=== PATIENT | male | born 1960 | race Hispanic/Latino ===

== ENCOUNTER 2018-08-25 01:58 | Inpatient (IN) | payer BC ==
[2018-08-25] MEDS ORDERED: ACETAMINOPHEN 500 MG TAB PO PRN (03:15)
[2018-08-25] MEDS ORDERED: ONDANSETRON 4 MG/2 ML VIAL IV PRN (03:15)
[2018-08-25] MEDS ORDERED: VANCOMYCIN 1.25 GM in NA CHLORIDE 0.9% 250 ML IVPB SCH (04:00)
[2018-08-25] MEDS: NA CHLORIDE 0.9% 1,000 ML IV SCH ×2 (04:02→17:20)
[2018-08-25] MEDS ORDERED: AMPICILLIN/SULBACTAM 3GM/VIAL ONE (05:46)
[2018-08-25] MEDS ORDERED: VANCOMYCIN 1 GM/VIAL ONE (05:46)
[2018-08-25] MEDS ORDERED: NA CHLORIDE 0.9% 100 ML ONE (05:48)
[2018-08-25 05:52] LABS: Absolute Lymphocytes (CBC) 0.3 K/uL (0.7-4.9); Basophils % 0.2 % (0-1.3); Hematocrit 40.9 % (39.6-49.0); Lymphocytes % 3.1 % (15.3-44.8); MPV 7.8 fL (7.6-11.3); Monocytes % 3.4 % (3.3-12.3); RBC Red Blood Cell Count 4.95 M/uL (4.33-5.43)
[2018-08-25] MEDS: AMPICILLIN/SULBACT 3 GM in NA CHLORIDE 0.9% 100 ML IVPB SCH ×3 (05:58→18:34)
[2018-08-25] MEDS ORDERED: VANCOMYCIN 1 GM in NA CHLORIDE 0.9% 250 ML IVPB ONE (06:00)
[2018-08-25 06:17] LABS: Albumin 3.2 g/dL (3.4-5.0); Bilirubin Total 1.3 mg/dL (0.2-1.0); Phosphorus 2.9 mg/dL (2.5-4.9); Potassium 3.5 mmol/L (3.5-5.1); Protein, Total 6.8 g/dL (6.4-8.2)
[2018-08-25 06:20] LABS: Magnesium 1.4 mg/dL (1.8-2.4)
[2018-08-25] MEDS ORDERED: NA CHLORIDE 0.9% 250 ML ONE (06:21)
[2018-08-25 06:27] LABS: Blood Morphology Comment NOT SEEN (NOT SEEN); Platelet Estimate ADEQ
[2018-08-25] MEDS ORDERED: Magnesium Sulfate 2gm IVPB 2 G/50 ML BAG IV ONE (06:30)
--- NOTE | 2018-08-25 08:20 | P.HP ---
Certification for Inpatient Patient admitted to: Inpatient With expected LOS: >2 Midnights Patient will require the following post-hospital care: Home Health Services Practitioner: I am a practitioner with admitting privileges, knowledge of patient current condition, hospital course, and medical plan of care. Services: Services provided to patient in accordance with Admission requirements found in Title 42 Section 412.3 of the Code of Federal Regulations Patient History Date of Service: 08/25/18 Reason for admission: Cellulitis of the left leg History of Present Illness: Patient is a 57-year-old gentleman who states that he noticed some redness yesterday morning. Over the next few hours the redness spread from his ankle up to his knee and he had significant pain up into the inguinal region. He most likely has lymphadenopathy with possible lymphangitis. He has a significant cellulitis of the lower extremity. He was started on antibiotics. Patient meets criteria for systemic inflammatory response syndrome. We did check a lactic acid which is negative so far. But with the degree of cellulitis and his vital signs being hemodynamically unstable patient will need to be monitored very closely. Will watch him on telemetry floor and will notice if anything changes. Patient needs to be inpatient hospital stay because of his multiple risk factors including being a diabetic and with his bilateral lower extremity edema and morbid obesity. Patient has lymphadenopathy which did express to the inguinal region as well as pain up the thigh. The erythema extends from the foot up into the bottom of the knee. This will take at least 48-72 hours of antibiotic coverage to the improved cellulitis. Hopefully by then his SIRS syndrome has resolved. Patient had multiple diagnostic studies at the the Emergency Room across the street including CT of the chest for PE protocol which did not reveal a pulmonary embolism nor did her revealed pulmonary edema. Patient had a Doppler of the lower extremity which was negative for DVT. Chest x-ray was also negative. Allergies No Known Allergies Allergy (Verified 08/25/18 02:48) Home Medications: Canagliflozin/Metformin HCl [Invokamet 150-1,000 mg Tablet] 2 tab PO BEDTIME 11/05 Cetirizine HCl [Zyrtec] 10 mg PO BEDTIME 08/25/18 Levothyroxine [Synthroid] 100 mcg PO BEDTIME 08/25/18 Lisinopril/Hydrochlorothiazide [Lisinopril-Hctz 10-12.5 mg Tab] 1 each PO BEDTIME 08/25/18 Montelukast [Singulair] 10 mg PO BEDTIME 08/25/18 Pantoprazole [Protonix Tab] 40 mg PO BEDTIME 08/25/18 Phentermine HCl 37.5 mg PO BEDTIME 08/25/18 Pioglitazone [Actos] 15 mg PO BEDTIME 08/25/18 Rosuvastatin Calcium [Crestor] 20 mg PO BEDTIME 08/25/18 Semaglutide [Ozempic] 1 mg SQ EVERY 7TH DAY 08/25/18 Tamsulosin [Flomax] 0.4 mg PO BEDTIME 08/25/18 - Past Medical/Surgical History Has patient received pneumonia vaccine in the past: Yes Diabetic: Yes -: DM type 2 -: hypothyroidism -: ALONZO -: bilateral carpal tunnel surgery -: bilateral knee surgery -: rhinoplasty -: tonsillectomy -: umbilical hernia repair -: right foot surgery - Social History Smoking Status: Never smoker Alcohol use: Yes CD- Drugs: No Caffeine use: Yes Place of Residence: Home Review of Systems 10-point ROS is otherwise unremarkable Physical Examination - Vital Signs Temperature: 100.5 F Blood Pressure: 103/57 Pulse: 102 Respirations: 20 Pulse Ox (%): 92 - Physical Exam General: Alert, In no apparent distress, Oriented x3 HEENT: Atraumatic, PERRLA, Mucous membr. moist/pink, EOMI, Sclerae nonicteric Neck: Supple, 2+ carotid pulse no bruit, No LAD, Without JVD or thyroid abnormality Respiratory: Clear to auscultation bilaterally, Normal air movement Cardiovascular: Regular rate/rhythm, Normal S1 S2, No murmurs Gastrointestinal: Normal bowel sounds, Soft and benign, Non-distended, No tenderness, No rebound, No guarding Musculoskeletal: No clubbing, No erythema, No tenderness, Swelling Integumentary: Skin lesion, Tenderness/swelling, Erythema, Warmth ( Patient has the erythema from his left knee on down to the left ankle. Patient also has lymphangitis.) Neurological: Normal gait, Normal speech, Normal strength at 5/5 x4 extr, Normal tone, Normal affect Lymphatics: Inguinal lymphadenopathy External genitalia: No edema, No lesions, No masses - Studies Laboratory Data (last 24 hrs) 08/25/18 05:43: Sodium 134 L, Potassium 3.5, BUN 21 H, Creatinine 1.73 H, Glucose 141 H, Phosphorus 2.9, Magnesium 1.4 L*, Total Bilirubin 1.3 H, AST 26, ALT 40, Alkaline Phosphatase 64 08/25/18 05:43: WBC 10.0, Hgb 13.5 L, Hct 40.9, Plt Count 203 Microbiology Data (last 24 hrs): 08/25/18 05:43 Blood - Blood Anaerobic Blood Culture - Final Assessment & Plan - Problems (Diagnosis) (1) Left leg cellulitis Current Visit: Yes Status: Acute (2) DM2 (diabetes mellitus, type 2) Current Visit: Yes Status: Acute (3) Obesity, Class III, BMI 40-49.9 (morbid obesity) Current Visit: Yes Status: Acute (4) SIRS (systemic inflammatory response syndrome) Current Visit: Yes Status: Acute (5) Lymphangitis Current Visit: Yes Status: Acute - Plan 1. Continue with IV antibiotic 2. Continue with local wound care 3. Surgical consultation 4. Gentle IV hydration 5. Monitor CBC 6. Strict blood sugar monitoring 7. Pain control 8. Monitor hemodynamics and SIRS response with IVFs 9. GI and DVT prophylaxis Discharge Plan: Home Plan to discharge in: 48 Hours - Advance Directives Does patient have a Living Will: Yes Does patient have a Durable POA for Healthcare: Yes - Code Status/Comfort Care Code Status Assessed: Yes Code Status: Full Code Critical Care: No Time Spent Managing PTS Care (In Minutes): 45
[2018-08-25] MEDS ORDERED: ACETAMINOPHEN 325 MG TABLET PO ONE (08:28)
[2018-08-25 10:13] LABS: Urine Appearance CLEAR; Urine Bilirubin NEGATIVE (NEG); Urine Blood 2+ (NEG); Urine Color YELLOW; Urine Glucose 3+ (NEG); Urine Protein NEGATIVE (NEG); Urine Specific Gravity >=1.030 (1.005-1.030); Urine Urobilinogen 0.2 mg/dL (0.2-1.0)
[2018-08-25 10:48] LABS: Urine Microscopic Reflex ORDER UMIC; Urine RBC 20-50 /HPF (NONE SEEN)
[2018-08-25 10:49] LABS: Urine Bacteria <20 /HPF (NONE SEEN); Urine Culture Reflex Order NOT NEEDED; Urine Yeast PRESENT (NONE SEEN)
[2018-08-25] MEDS: ACETAMINOPHEN 500 MG TAB PO PRN (17:12)
[2018-08-26] MEDS: VANCOMYCIN 2 GM in NA CHLORIDE 0.9% 500 ML IVPB SCH ×2 (00:11→23:09)
[2018-08-26] MEDS: NA CHLORIDE 0.9% 1,000 ML IV SCH (00:12)
[2018-08-26] MEDS: ACETAMINOPHEN 500 MG TAB PO PRN ×3 (00:18→18:19)
[2018-08-26] MEDS: AMPICILLIN/SULBACT 3 GM in NA CHLORIDE 0.9% 100 ML IVPB SCH ×4 (02:12→18:15)
[2018-08-26 05:55] LABS: Magnesium 2.3 mg/dL (1.8-2.4); Potassium 4.9 mmol/L (3.5-5.1)
[2018-08-26] MEDS: TRAMADOL HCL 50 MG TAB PO PRN ×2 (12:06→20:14)
--- NOTE | 2018-08-26 12:40 | P.PN ---
Subjective Date of Service: 08/26/18 Chief Complaint: Cellulitis of the left leg Subjective: Improving Patient seen and examined at bedside. Family at bedside. Chart reviewed and case discussed with nursing staff. Patient with complaints of headache this am. Denies any sob, cp, vision changes, speech changes, lightheadedness, GI or complaints. Review of Systems 10-point ROS is otherwise unremarkable Physical Examination - Vital Signs Temperature: 98.6 F Blood Pressure: 109/56 Pulse: 93 Respirations: 16 Pulse Ox (%): 93 - Physical Exam General: Alert, In no apparent distress, Oriented x3, Obese HEENT: Atraumatic, PERRLA, EOMI Neck: Supple, JVD not distended Respiratory: Clear to auscultation bilaterally, Normal air movement Cardiovascular: Regular rate/rhythm, Normal S1 S2 Gastrointestinal: Normal bowel sounds, No tenderness Musculoskeletal: No tenderness Integumentary: Tenderness/swelling (Improving, RLE), Erythema, Warmth Neurological: Normal speech, Normal tone, Normal affect Lymphatics: No axilla or inguinal lymphadenopathy - Studies Laboratory Data (last 24 hrs) 08/26/18 05:16: Sodium 136, Potassium 4.9, BUN 19 H, Creatinine 1.30, Glucose 115 H, Magnesium 2.3 D Microbiology Data (last 24 hrs): 08/25/18 09:33 Clean Catch Urine [place] Count - Final BETWEEN 10,000 & 100,000 CFU/ML 08/25/18 06:24 Blood - Blood Anaerobic Blood Culture - Final 08/25/18 05:43 Blood - Blood Anaerobic Blood Culture - Final Assessment And Plan - Current Problems (Diagnosis) (1) Left leg cellulitis Current Visit: Yes Status: Acute (2) DM2 (diabetes mellitus, type 2) Current Visit: Yes Status: Acute (3) Obesity, Class III, BMI 40-49.9 (morbid obesity) Current Visit: Yes Status: Acute (4) SIRS (systemic inflammatory response syndrome) Current Visit: Yes Status: Acute (5) Lymphangitis Current Visit: Yes Status: Acute - Plan 1. Continue with IV antibiotics 2. Continue with local wound care 3. Gentle IV hydration 4. Monitor CBC 5. Strict blood sugar monitoring 6. Pain control 7. Monitor hemodynamics and SIRS response with IVFs 8. GI and DVT prophylaxis
[2018-08-26] MEDS: ENOXAPARIN 40 MG/0.4 ML SQ SCH (16:00)
[2018-08-27] MEDS ORDERED: GUAIFENESIN 600 MG SA TAB PO ONE (00:28)
[2018-08-27] MEDS: AMPICILLIN/SULBACT 3 GM in NA CHLORIDE 0.9% 100 ML IVPB SCH ×4 (01:15→17:50)
--- NOTE | 2018-08-27 07:19 | RAD REPORT ---
EXAM DESCRIPTION: US - Extremity Venous Uni Ltd - 08/26/2018 11:14 pm CLINICAL HISTORY: Left leg pain and swelling COMPARISON: None. TECHNIQUE: Real-time sonographic evaluation of the left lower extremity deep venous system was perfo rmed. FINDINGS: Normal compressibility, flow augmentation, phasic flow and spontaneous flow are identified in the left lower extremity common femoral, superficial femoral, popliteal and posterior tibial vein s. No intraluminal filling defects seen. IMPRESSION: No DVT in the left lower extremity.
[2018-08-27] MEDS: ENOXAPARIN 40 MG/0.4 ML SQ SCH (09:13)
[2018-08-27] MEDS ORDERED: FUROSEMIDE 40 MG/4 ML VIAL IV ONE (12:01)
--- NOTE | 2018-08-27 13:10 | P.PN ---
Subjective Date of Service: 08/27/18 Chief Complaint: Cellulitis of the left leg Patient seen and examined at bedside. Family at bedside. Chart reviewed and case discussed with nursing staff. overnight, patient developed fluid filled blisters on LE extremity; + drainage, wound cultures sent. Erythema, warmth worsened from yesterday. Denies any sob, cp, vision changes, speech changes, lightheadedness, GI or complaints. Review of Systems 10-point ROS is otherwise unremarkable Physical Examination - Vital Signs Temperature: 98.4 F Blood Pressure: 120/70 Pulse: 89 Respirations: 20 Pulse Ox (%): 96 - Physical Exam General: Alert, In no apparent distress, Oriented x3 HEENT: Atraumatic, PERRLA, EOMI Neck: Supple, JVD not distended Respiratory: Clear to auscultation bilaterally, Normal air movement Cardiovascular: Regular rate/rhythm, Normal S1 S2 Gastrointestinal: Normal bowel sounds, No tenderness Musculoskeletal: No tenderness Integumentary: Tenderness/swelling, Erythema, Warmth (Left LE. + 2 fluid filled blisters, no drainage noted at this time. ) Neurological: Normal speech, Normal tone, Normal affect Lymphatics: No axilla or inguinal lymphadenopathy - Studies Microbiology Data (last 24 hrs): 08/25/18 09:33 Clean Catch Urine [place] Count - Final BETWEEN 10,000 & 100,000 CFU/ML 08/25/18 09:33 Clean Catch Urine - Final Assessment And Plan - Current Problems (Diagnosis) (1) Left leg cellulitis Current Visit: Yes Status: Acute (2) DM2 (diabetes mellitus, type 2) Current Visit: Yes Status: Acute (3) Obesity, Class III, BMI 40-49.9 (morbid obesity) Current Visit: Yes Status: Acute (4) SIRS (systemic inflammatory response syndrome) Current Visit: Yes Status: Acute (5) Lymphangitis Current Visit: Yes Status: Acute - Plan 1. Continue with IV antibiotics 2. Continue with local wound care 3. Gentle IV hydration 4. Monitor CBC 5. Strict blood sugar monitoring 6. Pain control 7. Monitor hemodynamics and SIRS response 8. GI and DVT prophylaxis
[2018-08-27] MEDS ORDERED: ENOXAPARIN 40 MG/0.4 ML SQ SCH (13:51)
[2018-08-27] MEDS: TRAMADOL HCL 50 MG TAB PO PRN ×2 (17:50→23:13)
[2018-08-27] MEDS: VANCOMYCIN 2.25 GM in NA CHLORIDE 0.9% 500 ML IVPB SCH (23:04)
[2018-08-28] MEDS: AMPICILLIN/SULBACT 3 GM in NA CHLORIDE 0.9% 100 ML IVPB SCH ×5 (00:23→18:34)
[2018-08-28] MEDS: TRAMADOL HCL 50 MG TAB PO PRN (08:30)
[2018-08-28] MEDS: ENOXAPARIN 40 MG/0.4 ML SQ SCH (08:31)
[2018-08-28] MEDS: SILVER SULFADIAZINE 1% 50 GM TOP SCH (08:31)
[2018-08-28 15:02] LABS: Absolute Lymphocytes (CBC) 0.9 K/uL (0.7-4.9); Basophils % 0.2 % (0-1.3); Eosinophils % 0.8 % (0-4.4); Hematocrit 38.1 % (39.6-49.0); Lymphocytes % 8.8 % (15.3-44.8); Monocytes % 6.6 % (3.3-12.3); RBC Red Blood Cell Count 4.58 M/uL (4.33-5.43)
--- NOTE | 2018-08-28 18:14 | PN ---
Date of Progress Note: 08/28/2018 Subjective: The patient is seen and examined, chart reviewed and case discussed with RN. The evelyne gallegos's family at the bedside. They are requesting transfer to [place] as the patient lives there an d currently here on vacation. I explained to the daughter that the patient also requested being sent home with a PICC line and then go by private vehicle to be admitted in [place], however, explain ed to her that he is not medically cleared for discharge. Transfer process has been started. We krystyna motley also reach out to his family physician in [place]. The patient is still having significant a mount of edema and pain, redness, swelling. Medications: List reviewed. Physical Examination: Vital Signs: Temperature 98.2, heart rate 81, blood pressure 127/65, respirations 20, O2 94% on room air. General: Awake, alert, oriented x3. Some mild distress, morbidly obese male ill-appearing. CV: S1, S2. Peripheral pulses present. Respiratory: Moving air well bilaterally. No wheezing or stridor. Gastrointestinal: Abdomen is soft, nontender, nondistended. Positive bowel sounds. Extremities: No clubbing, cyanosis. The patient has diffuse edema of the left lower extremity. Skin: Left lower extremity erythema, tenderness to palpation, blistering on the dorsal aspect with s treaking up towards the thigh. Neurologic: Nonfocal. Laboratory Data: Blood culture show no growth to date. Final wound cultures pending at this time. Assessment: 1.Left leg cellulitis, not improving. The patient still has significant amount of redness, erythema , currently afebrile. Last temperature spike was on the 8th. Cultures are negative. Doppler was ne gative for DVT. 2.Diabetes mellitus type 2, non-insulin requiring. We will continue with sliding scale insulin and monitor blood glucose levels. The patient does have hyperglycemia. 3.Morbid obesity, BMI 47. 4.Systemic inflammatory response syndrome, resolved. 5.Lymphangitis. Plan: Adjust IV antibiotics. Consult Infectious Disease. We will start transfer process to [facility]. We will contact the patient's primary care physician in [place]. /TATIANNA Voice ID: [id number] Report ID: [id number]
--- NOTE | 2018-08-28 18:24 | RAD REPORT ---
EXAM DESCRIPTION: RAD - Chest Single View - 08/28/2018 5:46 pm CLINICAL HISTORY: PICC line placement COMPARISON: None. FINDINGS: Portable chest was obtained following placement of a right upper extremity PICC line. The catheter tip is in the SVC.
--- NOTE | 2018-08-28 19:57 | CON ---
History Of Present Illness: This is a 57-year-old male coming in with cellulitis of left lower extre mity, which started while he was leaving his home in [place]. The patient was here on vacation when he developed redness, swelling, and ulceration in his left lower extremity. Denies any headach e, nausea, vomiting, chest pain, abdominal pain, constipation, diarrhea. Currently on vancomycin and Unasyn. The patient initially had some fevers. Denies any history of DVT. The patient has diabete s mellitus, but not taking any medication for it at this time. Denies any other problems. Past Medical History: As per HPI. Social History: Nonsmoker, nondrinker. Family History: Noncontributory. Medication: Unasyn and vancomycin. Allergies: NO KNOWN DRUG ALLERGIES. Review of Systems: A 10-point review was performed. Physical Examination: General: This is a 57-year-old male, lying in bed, not in any acute cardiopulmonary distress. Vital Signs: Temperature 98, pulse 78, respiration 16, blood pressure 124/63. HEENT: Unremarkable. Neck: Supple. Lungs: Basal crackles. Heart: S1, S2. Regular. Abdomen: Obese. Bowel sounds present. Extremity: 3+ edema with erythematous changes, increased warmth all the way up to thigh. An open ul ceration noted on the back of his calf area. Laboratory Data: Shows WBC 18909, hemoglobin 13.5, platelets are 203, neutrophil 93%. Microdata; bl ood cultures, no growth in 24 hours. Assessment And Plan: Cellulitis of left lower extremity with stasis ulcers. I agree with vancomycin . Start the patient on Zosyn, total course 2-3 weeks of antibiotic. Consider sending the patient to long-term acute care. Keep leg elevated. We will follow the patient as needed. Thank you Dr. Hager for consult. NF/ALLISONL Voice ID: [id number] Report ID: [id number]
[2018-08-28 20:37] LABS: Blood Morphology Comment NOT SEEN (NOT SEEN); Platelet Estimate ADEQ; Toxic Granulation PRESENT; Urine White Blood Cell Casts OK
[2018-08-28] MEDS ORDERED: MONTELUKAST 10 MG TAB PO SCH (21:00)
[2018-08-28] MEDS ORDERED: ROSUVASTATIN 10 MG TAB PO SCH (21:00)
[2018-08-28] MEDS ORDERED: TAMSULOSIN 0.4 MG SR CAP PO SCH (21:00)
[2018-08-28] MEDS ORDERED: HOME MED 1 EA UNK (Lisinopril/Hydrochlorothiazide [Lisinopril-Hctz 10-12.5 Mg Tab] 1 EACH) PO SCH (21:00)
[2018-08-28] MEDS ORDERED: PANTOPRAZOLE 40MG TABLET PO SCH (21:00)
[2018-08-28] MEDS ORDERED: CETIRIZINE HCL 5 MG TABLET PO SCH (21:00)
[2018-08-28] MEDS ORDERED: HOME MED 1 EA UNK (Cetirizine Hcl [Zyrtec] 10 MG) PO SCH (21:00)
[2018-08-28] MEDS ORDERED: hydroCHLOROthiazide 12.5 MG CAP PO SCH (21:00)
[2018-08-28] MEDS ORDERED: LEVOTHYROXINE SOD 0.1 MG TAB PO SCH (21:00)
[2018-08-28] MEDS ORDERED: HOME MED 1 EA UNK (Rosuvastatin Calcium [Crestor] 20 MG) PO SCH (21:00)
[2018-08-28] MEDS ORDERED: LISINOPRIL 10 MG TAB PO SCH (21:00)
[2018-08-28] MEDS: MORPHINE 4 MG/ML SYR IV PRN (22:19)
[2018-08-28] MEDS: GUAIFENESIN 600 MG SA TAB PO SCH (22:21)
[2018-08-28] MEDS ORDERED: ALBUTEROL 2.5 MG/3 ML NEB SOL NEB PRN (22:56)
[2018-08-28] MEDS: VANCOMYCIN 2.25 GM in NA CHLORIDE 0.9% 500 ML IVPB SCH (23:01)
--- NOTE | 2018-08-28 23:35 | P.DS ---
Admission Date: 08/25/18 Discharge Date: 08/28/18 Disposition: TRANSFER TO [facility] Discharge Condition: GOOD Reason for Admission: Cellulitis of the left leg Brief History of Present Illness: By Dr Hunt: Patient is a 57-year-old gentleman who states that he noticed some redness yesterday morning. Over the next few hours the redness spread from his ankle up to his knee and he had significant pain up into the inguinal region. He most likely has lymphadenopathy with possible lymphangitis. He has a significant cellulitis of the lower extremity. He was started on antibiotics. Patient meets criteria for systemic inflammatory response syndrome. We did check a lactic acid which is negative so far. But with the degree of cellulitis and his vital signs being hemodynamically unstable patient will need to be monitored very closely. Will watch him on telemetry floor and will notice if anything changes. Patient needs to be inpatient hospital stay because of his multiple risk factors including being a diabetic and with his bilateral lower extremity edema and morbid obesity. Patient has lymphadenopathy which did express to the inguinal region as well as pain up the thigh. The erythema extends from the foot up into the bottom of the knee. This will take at least 48-72 hours of antibiotic coverage to the improved cellulitis. Hopefully by then his SIRS syndrome has resolved. Patient had multiple diagnostic studies at the the Emergency Room across the street including CT of the chest for PE protocol which did not reveal a pulmonary embolism nor did her revealed pulmonary edema. Patient had a Doppler of the lower extremity which was negative for DVT. Chest x-ray was also negative. Hospital Course: The patient was admitted to the hospital due to left lower extremity cellulitis. He was febrile, normal WBC count but bandemia at admission. Lactic acid was normal. Doppler US showed no DVT. He was started empiric treatment with IV Vancomycin and Unasyn. Blood cultures and wound cultures remain negative. The patient has gradually improved, he has not repeated fever in the last 48 hr, vital signs remain stable, however, he still needs to continue IV antibiotics. ID specialist, Dr Squires, evaluated the patient, and he has recommended to continue for 2-3 weeks depending his progress. The patient is from [place], and he would like to continue his medical treatment close to his home. I have discussed the case with Dr Robbins at [facility], who has been very gracious to accept the patient under her care. The patient will be transfer by ambulance in stable condition. Vital Signs/Physical Exam: Temp Pulse Resp BP Pulse Ox 97.2 F 84 16 120/67 95 08/28/18 20:00 08/28/18 22:22 08/28/18 20:00 08/28/18 22:22 08/28/18 20:00 General: Alert, In no apparent distress Respiratory: Clear to auscultation bilaterally, Normal air movement Cardiovascular: Normal S1 S2, No gallops Gastrointestinal: Normal bowel sounds, No tenderness Musculoskeletal: Swelling, Tenderness Integumentary: No rashes, Tenderness/swelling (left leg), Erythema (left leg) Neurological: Normal speech, Normal tone, Normal affect Lymphatics: No axilla or inguinal lymphadenopathy Laboratory Data at Discharge: WBC 10.7 K/uL (4.3-10.9) 08/28/18 14:05 Hgb 12.4 g/dL (13.6-17.9) L 08/28/18 14:05 Hct 38.1 % (39.6-49.0) L 08/28/18 14:05 Plt Count 213 K/uL (152-406) 08/28/18 14:05 Sodium 136 mmol/L (136-145) 08/26/18 05:16 Potassium 4.9 mmol/L (3.5-5.1) 08/26/18 05:16 BUN 19 mg/dL (7-18) H 08/26/18 05:16 Creatinine 1.07 mg/dL (0.55-1.3) 08/28/18 22:24 Glucose 115 mg/dL (74-106) H 08/26/18 05:16 Phosphorus 2.9 mg/dL (2.5-4.9) 08/25/18 05:43 Magnesium 2.3 mg/dL (1.8-2.4) D 08/26/18 05:16 Total Bilirubin 1.3 mg/dL (0.2-1.0) H 08/25/18 05:43 AST 26 U/L (15-37) 08/25/18 05:43 ALT 40 U/L (12-78) 08/25/18 05:43 Alkaline Phosphatase 64 U/L (45-117) 08/25/18 05:43 Home Medications: Canagliflozin/Metformin HCl [Invokamet 150-1,000 mg Tablet] 2 tab PO BEDTIME 11/05 Cetirizine HCl [Zyrtec] 10 mg PO BEDTIME 08/25/18 Levothyroxine [Synthroid] 100 mcg PO BEDTIME 08/25/18 Lisinopril/Hydrochlorothiazide [Lisinopril-Hctz 10-12.5 mg Tab] 1 each PO BEDTIME 08/25/18 Montelukast [Singulair] 10 mg PO BEDTIME 08/25/18 Pantoprazole [Protonix Tab] 40 mg PO BEDTIME 08/25/18 Phentermine HCl 37.5 mg PO BEDTIME 08/25/18 Pioglitazone [Actos] 15 mg PO BEDTIME 08/25/18 Rosuvastatin Calcium [Crestor] 20 mg PO BEDTIME 08/25/18 Semaglutide [Ozempic] 1 mg SQ EVERY 7TH DAY 08/25/18 Tamsulosin [Flomax] 0.4 mg PO BEDTIME 08/25/18 Diet: ADA Activity: Fall precautions
[2018-08-29] MEDS: AMPICILLIN/SULBACT 3 GM in NA CHLORIDE 0.9% 100 ML IVPB SCH ×2 (01:08→05:54)
[2018-08-29 06:21] LABS: Absolute Lymphocytes (CBC) 0.9 K/uL (0.7-4.9); Basophils % 0.3 % (0-1.3); Eosinophils % 1.2 % (0-4.4); Hematocrit 34.1 % (39.6-49.0); MPV 7.8 fL (7.6-11.3); Monocytes % 8.7 % (3.3-12.3)
[2018-08-29 06:25] LABS: Albumin 2.2 g/dL (3.4-5.0); Bilirubin Total 0.7 mg/dL (0.2-1.0); Potassium 3.5 mmol/L (3.5-5.1); Protein, Total 6.5 g/dL (6.4-8.2)
[2018-08-29] MEDS: GUAIFENESIN 600 MG SA TAB PO SCH (08:11)
[2018-08-29] MEDS: SILVER SULFADIAZINE 1% 50 GM TOP SCH (08:11)
[2018-08-29] MEDS: ENOXAPARIN 40 MG/0.4 ML SQ SCH (08:11)
[2018-08-29] MEDS: MORPHINE 4 MG/ML SYR IV PRN ×2 (08:26→14:53)
[2018-08-29] MEDS ORDERED: VANCOMYCIN 2.25 GM in NA CHLORIDE 0.9% 500 ML IVPB SCH (13:00)
--- NOTE | 2018-08-29 16:54 | PN ---
Date of Progress Note: 08/29/2018 Subjective: Patient seen and examined. Chart reviewed and case discussed with RN. The patient was accepted by facility near [place] in [place]. seismograph recorder , Dr. Ceja. The patient today reports weeping of his leg along with continued swelling and redness. at the bedside. Medications: List reviewed. Physical Examination: Vital Signs: Temperature 97.7, heart rate 86, blood pressure 119/57, respirations 18, O2 94% on room air. General: Awake, alert, oriented x3. Morbidly obese male, ill-appearing. CVS: S1, S2. Regular rate and rhythm. Peripheral pulses present. Respiratory: Moving air well bilaterally. No wheezing or stridor. Gastrointestinal: Abdomen is soft, nontender, nondistended. Positive bowel sounds. Extremities: No clubbing, cyanosis. The patient has left lower extremity edema. Skin: Left lower extremity erythema, warm to touch. Tenderness to palpation along with some blistering and weeping of the wound. Neurologic: Nonfocal. Sensation intact to light touch. Laboratory Data: Sodium 139, potassium 3.5, chloride 104, CO2 of 29, BUN 14, creatinine 0.97, glucose 155. Calcium 8, albumin 2.2. WBC 9.3, H and H 11.1 and 34.1, platelets 212, neutrophils 79%. Blood cultures no growth to date. Wound cultures, preliminary report showing no growth. Assessment And Plan: A 57-year-old male with. 1. Left lower extremity cellulitis. Still significant amount of erythema and swelling. White count is normalized and no further temperature. We will need to continue elevating the leg and continue with ice, ice packs, no DVT, antibiotics were adjusted. We will continue vancomycin and Zosyn. Appreciate Dr. Squires's input. The patient will need long-term IV antibiotics for at least 2-3 weeks along with wound care. Cultures are still pending. Blood cultures are negative to date. Wound cultures are pending at this time. 2. Diabetes mellitus type 2 non-insulin requiring with hyperglycemia. Continue with sliding scale insulin and monitor Accu-Cheks. 3. Morbid obesity. BMI 47. 4. Systemic inflammatory response syndrome, resolved. The patient did not develop sepsis. 5. Lymphangitis secondary to above. 6. Severe protein-calorie malnutrition. Albumin is 2.2. 7. Deep vein thrombosis prophylaxis with Lovenox. 8. Hypothyroidism. Continue levothyroxine. 9. Mixed hyperlipidemia. Continue Crestor. Plan: Continue wound care. The patient was accepted to facility near [place] for transfer per family request so they can be close to home once transportation has been arranged. We will transfer to outside facility. JC Voice ID: [id number] Report ID: [id number] ANIKA
[2018-08-29] MEDS ORDERED: PIPER/TAZO/NS 3.375gm 3.375 GM/100 ML BAG IVPB SCH (17:00)
== END 2018-08-29 16:55 | disposition left against medical advice (07) | DRG 602 ==
LOC: 2ND 01:58
PROVIDERS: ADMIT Hospitalist; ATTEND Family Medicine
PROC: 02HV33Z Insertion of Infusion Device into Superior Vena Cava, Percutaneous Approach (ICD-10-PCS; principal; 2018-08-28)
DX: L03.116 Cellulitis of left lower limb (principal); E43 Unspecified severe protein-calorie malnutrition; Z68.42 Body mass index [BMI] 45.0-49.9, adult; I87.2 Venous insufficiency (chronic) (peripheral); E66.01 Morbid (severe) obesity due to excess calories; E11.65 Type 2 diabetes mellitus with hyperglycemia; E03.9 Hypothyroidism, unspecified; G47.33 Obstructive sleep apnea (adult) (pediatric); E78.2 Mixed hyperlipidemia
CPT/HCPCS: 36415; 71045; 80048; 80053; 80202; 81003; 81015; 82550; 82565; 82962; 83036; 83605; 83735; 84100; 85025; 87040; 87070; 87075; 87086; 87088; 87205; 93971; 99251; J0295; J1650; J1940; J2543; J3475; J7030